=== PATIENT | female | born 1975 | race Caucasian/White ===

== ENCOUNTER 2019-08-06 12:17 | Emergency (ER) | payer OTHER, SELFPAY ==
--- NOTE | ~2019-08-06 | XR_ITS ---
EXAMINATION: XR chest 2V DATE: 08/06/2019 12:47 INDICATION: Cough and shortness of breath. TECHNIQUE: Frontal and lateral views of the chest were obtained. COMPARISON: None. FINDINGS: The chest demonstrates clear lungs without pneumonia, pleural effusion, or pneumothorax. Th e heart size is normal. IMPRESSION: 1. No acute cardiopulmonary disease. Reviewed, dictated and finalized at location A. [employer]
[2019-08-06 12:31] VITALS: BP 150/82; PULSE 101; RESP 18; TEMP 36.7; O2SAT 98
--- NOTE | 2019-08-06 12:41 | ED.URI ---
HPI - URI/Sore Throat General Chief Complaint: Upper Respiratory Infection Stated Complaint: Cough,Fever Time Seen by Provider: 08/06/19 12:41 Source: patient and RN notes reviewed Mode of arrival: ambulatory Limitations: no limitations History of Present Illness HPI Narrative: 44 year old female who presents to [facility] care with complaints of 6-day history of productive cough with expectoration of thick green-yellow mucus, shortness of breath, sore throat, fever which is been the highest of 102F,nasal drainage and stuffiness. Patient states that she has coughed so much her ribs are sore, and has coughed so hard that she has vomited. Patient states that she has an inhaler at home and she used it last evening for the shortness of breath which did help a little. Patient states that she continues to feel feverish and have chills and has been unable to rest due to coughing. 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 EYES: Denies visual changes, redness, or discharge. ENT: positive rhinorrhea, congestion, sore throat, no otalgia. CARDIOVASCULAR: Denies chest pain, palpitations, or edema. RESPIRATORY: positive cough or dyspnea. GASTROINTESTINAL: Denies abdominal pain, nausea, vomiting, or diarrhea. GENITOURINARY: Denies dysuria or hematuria. SKIN: Denies rash or itching. MUSCULOSKELETAL: Denies back pain, joint pain, or myalgia. NEUROLOGIC: Denies headache, numbness, or weakness. PSYCHIATRIC: Denies anxiety or depression. All systems reviewed & are unremarkable except as noted in HPI and below PMFSH Past Medical History Medical History (Updated 08/06/19 @ 13:28 by Donya Cortez NP) Asthma Pneumonia Social History Social History (Updated 08/06/19 @ 15:00 by Donya Cortez NP) Smoking status: Former smoker Tobacco type: cigarettes Alcohol intake: current Living arrangements: with family Gender identity (if verbalized by the patient): Female Comments At time of signature, agree with nursing past medical, social history. There is no relevant family history pertinent to the presenting complaint Exam Narrative: Exam Narrative: GENERAL: Well-appearing, well-nourished, and in no acute distress. HEAD: Normocephalic, atraumatic. EYES: PERRLA and EOMI. ENT: Nares red, clear rhinorrhea no epistaxis. Mucous membranes moist. NECK: Supple. CHEST: Coarse breath sounds on auscultation. No acute respiratory distress.dyspnea with exertion HEART: Regular rate and rhythm. No murmur heard. Normal peripheral pulses. ABDOMEN: Soft, nontender, nondistended, normal active bowel sounds. EXTREMITIES: Normal range of motion. No edema. SKIN: Warm, dry, no rash. NEURO: No focal deficits. Alert and oriented x3. Course Vital Signs Vital signs: Vital Signs Temperature 36.7 C 08/06/19 12:31 Pulse Rate 101 H 08/06/19 12:31 Respiratory Rate 18 08/06/19 12:31 Blood Pressure 150/82 H 08/06/19 12:31 Pulse Oximetry 98 08/06/19 12:31 Temperature 36.7 C 08/06/19 12:31 Pulse Rate 101 H 08/06/19 12:31 Respiratory Rate 18 08/06/19 12:31 Blood Pressure 150/82 H 08/06/19 12:31 Pulse Oximetry 98 08/06/19 12:31 MDM - URI/Sore Throat Differential Diagnosis Differential diagnosis: Likely
== END 2019-08-06 13:15 | disposition home or self-care (01) ==
PROVIDERS: Emergency Provider Registered Nurse
DX: R05 Cough (principal); R06.09 Other forms of dyspnea; J06.9 Acute upper respiratory infection, unspecified; F17.210 Nicotine dependence, cigarettes, uncomplicated
CPT/HCPCS: 71046; 87804; 99203; G0463

== ENCOUNTER 2022-06-26 07:36 | Outpatient (CLI) | payer BC, SELFPAY ==
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
[2022-06-26 08:28] LABS: Hematocrit 38.5 % (37.0-47.0); Hemoglobin 11.9 g/dL (12.0-15.0); Mean Corpuscular HGB Conc 30.9 g/dl (32-36); Mean Corpuscular Hemoglobin 26.4 pg (26-34); Mean Corpuscular Volume 85.4 fl (80-100); Mean Platelet Volume 12.1 fl (7.4-10.4); Platelet Count Result 232 k/mm3 (150-375); Red Blood Count 4.51 M/mm3 (4.2-5.4); Red Cell Distribution Width 15.7 % (11.5-14.5); White Blood Count 5.7 K/mm3 (4.5-10.0)
[2022-06-26 08:30] LABS: Anion Gap 3 mmol/L (8-16); Blood Urea Nitrogen 16 mg/dL (7-17); Calcium 8.8 mg/dL (8.4-10.2); Carbon Dioxide 30 mmol/L (22-30); Chloride 104 mmol/L (98-107); Estimated Glomerular Filt Rate > 60; Glucose 99 mg/dL (65-110); Potassium 4.3 mmol/L (3.4-5.0); Sodium 137 mmol/L (137-145)
[2022-06-30 12:15] LABS: FSH 3.8 mIU/mL (***)
[2022-07-02 18:47] LABS: Estradiol, Ultrasensitive 306 pg/mL
== END 2022-06-26 07:37 | disposition home or self-care (01) ==
PROVIDERS: Anesthesiology; PCP Physician Assistant; Visit Provider Student in an Organized Health Care Education/Training Program
DX: N93.9 Abnormal uterine and vaginal bleeding, unspecified (principal); Z87.891 Personal history of nicotine dependence; Z79.899 Other long term (current) drug therapy
CPT/HCPCS: 36415; 80048; 82670; 83001; 84443; 85027; 93005

== ENCOUNTER 2022-06-27 00:28 | Day surgery (SDC) | payer BC, SELFPAY ==
[2022-06-12 11:45] VITALS: BMI 48.4
--- NOTE | 2022-06-12 11:56 | PC.NURSE ---
Report to the Outpatient Waiting Room, entrance under the green pavilion located off [facility], at time 12:00 on date 06/27/22. Planned Procedure Time: 2:00. Time changes happen often and if your time is changed the preop area will call you the afternoon before. - You and your visitor will be asked to self-screen and do not enter if you have any COVID symptoms. - Only one visitor is requested with a max of two and NO children visitors are allowed at this time. - The patient visitor may be requested to leave or wait in car when not with patient due to distancing restrictions. - A mask is REQUIRED within the hospital. Patients may have clear liquids (water, carbonated beverages, clear teas, apple juice) until 3 hours prior to surgery (11:00) with a maximum of 20 ounces. - No food from midnight until time of surgery Take the following medications with a SIP of water the morning of surgery: INHALERS Medications to discontinue per physician: N/A Date to take last dose: N/A Please no make-up, nail montenegrin, hairspray, perfume, deodorant, or body powder the day of surgery. No jewelry (including any body piercings) or valuables the day of surgery, leave them at home. Please take a shower or bath the night before, or the morning of, surgery with an antibacterial soap. Wear comfortable, loose fitting clothing. - Jewelry must be removed prior to entering the operating room. Rings and piercings that are not removed may be cut off. - The hospital will not accept responsibility for valuables. - Please leave all valuables, including medications, at home the day of surgery. If you are going home after surgery, a licensed hydraulic lift driver must drive you home. - NO public transportation without another adult if you receive anesthesia. - We recommend that an adult stay with you for 24 hours following discharge. - We also recommend that you do not drive, make important decision, drink alcoholic beverages, or take any drugs that were not prescribed by your health care provider for at least 24 hours after your discharge time. Follow any additional instructions given to you from your surgeon. If you or anyone in your household have experienced Covid symptoms in the past week, please notify your surgeon or the nurse liaison at the phone number below for possible testing. Telephone instructions given to PT - SURY SCOTT and asked if any additional questions and then verbalized understanding. Patient advised to call surgeon office or pre surgery nurse liaison [phone] if any additional questions.
--- NOTE | 2022-06-26 13:59 | PM.IMHP ---
H&P: HPI History of Present Illness Date/Time: 06/26/22 13:59 Chief Complaint: abnormal uterine bleeding desires permanent sterilization Narrative: 47-year-old female who presents for hysteroscopy, D&C, endometrial ablation, laparoscopic bilateral tubal ligation. Patient initially presented with prolonged heavy menses. Patient is not interested in any hormonal contraceptives. Patient requests surgical management via endometrial ablation. Patient requests permanent sterilization at the time of endometrial ablation. Review of Systems Cardiovascular: Cardiovascular: Denies chest pain, Denies leg edema, Denies palpitations, Denies dyspnea and Denies dyspnea on exertion Respiratory: Respiratory: Denies cough, Denies dyspnea and Denies dyspnea on exertion Gastrointestinal: Gastrointestinal: Denies abdominal pain, Denies constipation, Denies diarrhea, Denies nausea and Denies vomiting Genitourinary: Genitourinary: Denies hematuria, Denies urinary frequency, Denies dysuria, Denies pelvic pain, Denies urinary incontinence and Denies vaginal discharge Neurologic: Reports system reviewed and no additional complaints, except as documented Psychiatric: Psychiatric: Reports no additional psychiatric complaints Endocrine: Endocrine: Denies palpitations PMFSH Past Medical History Medical History Asthma Pneumonia Surgical History Surgical History History of back surgery History of delivery Social History Social History Smoking packs per day: 1.25 Smoking cigarettes per day: 25.0 Years smoked: 25 Smoking pack-years: 31.25 Smoking status: Former smoker Tobacco type: cigarettes Smoking end date: 06/23/11 Alcohol intake: never Substance use: never Substance use type: does not use Gender identity (if verbalized by the patient): Female Sexual Orientation (if Verbalized by the Patient): Straight or Heterosexual Spiritual care concerns: No Meds Home Medications and Allergies Home Medications Medication Instructions Recorded Confirmed Type albuterol sulfate 90 mcg/actuation 2 puff inhalation Q4-6H PRN 08/06/19 06/12/22 History aerosol inhaler Bronchospasm furosemide 80 mg tablet (Lasix) 80 mg PO QAM 05/27/22 06/12/22 History drospirenone (contraceptive) 4 mg 1 tablet PO DAILY #84 tabs 06/03/22 06/12/22 Rx (28) tablet (Slynd) budesonide-formoterol HFA 160 2 inh inhalation BID 06/12/22 06/12/22 History mcg-4.5 mcg/actuation aerosol inhaler (Symbicort) ipratropium 20 mcg-albuterol 100 2 puff inhalation BID 06/12/22 06/12/22 History mcg/actuation mist for inhalation (Combivent Respimat) Allergies Allergy/AdvReac Type Severity Reaction Status Date / Time No Known Allergies Allergy Verified 06/12/22 11:43 Exam Const: General: no acute distress Eyes: EOM: EOMs intact bilaterally Neck: Neck: supple Thyroid: thyroid normal Chest: Breast/axilla inspection: normal inspection of the breasts Breast/axilla palpation: normal palpation of the breasts, normal palpation of the axillae and no axillary lymphadenopathy Resp: Effort & Inspection: normal respiratory effort Auscultation: clear to auscultation bilaterally Cardio: Rate: regular rate Rhythm: regular rhythm GI: Inspection: non-distended GI Palp: Yes Soft to palpation, No Tenderness to palpation present (GI) and No Guarding due to palpation present (GI) Auscultation: normal bowel sounds : General: No bladder normal to palpation External Female Exam: normal external appearance Speculum Exam - Vagina: normal vaginal discharge and No vaginal bleeding Speculum Exam - Cervix: nontender Bimanual exam- vagina & uterus: No bladder normal to palpation and No Cervical tenderness present OB/external & speculum: No vaginal bleeding Skin: General sk
--- NOTE | 2022-06-27 09:32 | WPDANESEPPF ---
Anes - Initial Pre Proc Eval Procedure: Operation Date: 06/27/22 13:00 Proposed Procedures p Hysteroscopy Dilation and Curettage Jonna Endometrial Ablation, Bilateral Laparoscopic Salpingectomy - Oc Moreno MD Date/Time: 06/27/22 09:32 Surgeon: Oc Moreno MD Pre Op Diagnosis: abnormal uterine bleeding, desires sterilization Patient Data Age: 47 Gender: F Height: 1.68 m Weight: 136.1 kg Allergies Allergy/AdvReac Type Severity Reaction Status Date / Time No Known Allergies Allergy Verified 06/27/22 12:28 Home Medications Medication Instructions Recorded Confirmed Type albuterol sulfate 90 mcg/actuation 2 puff inhalation Q4-6H PRN 08/06/19 06/27/22 History aerosol inhaler Bronchospasm furosemide 80 mg tablet (Lasix) 80 mg PO QAM 05/27/22 06/12/22 History drospirenone (contraceptive) 4 mg 1 tablet PO DAILY #84 tabs 06/03/22 06/12/22 Rx (28) tablet (Slynd) budesonide-formoterol HFA 160 2 inh inhalation BID 06/12/22 06/27/22 History mcg-4.5 mcg/actuation aerosol inhaler (Symbicort) ipratropium 20 mcg-albuterol 100 2 puff inhalation BID 06/12/22 06/27/22 History mcg/actuation mist for inhalation (Combivent Respimat) Patient hx anesthesia problems: none Family hx anesthesia problems: none Results Review: All pre-operative results and documents have been reviewed as part of the pre-operative evaluation. [facility] Past Medical History Medical History (Updated 06/27/22 @ 09:34 by Ernesto Beltre DO) Asthma Edema Pneumonia Surgical History Surgical History (Updated 06/27/22 @ 09:34 by Ernesto Beltre DO) H/O detached retina repair History of back surgery History of delivery Social History Social History Smoking packs per day: 1.25 Smoking cigarettes per day: 25.0 Years smoked: 25 Smoking pack-years: 31.25 Smoking status: Former smoker Tobacco type: cigarettes Smoking end date: 06/23/11 Alcohol intake: never Substance use: never Substance use type: does not use Living arrangements: with family Gender identity (if verbalized by the patient): Female Sexual Orientation (if Verbalized by the Patient): Straight or Heterosexual Spiritual care concerns: No Anes - Eval Final PreProcedure Day of Procedure 06/27/22 09:32 Patient weight: morbidly obese Heart: regular rate and rhythm Lungs: clear to auscultation Airway: Mallampati scale class II Neurological: alert and oriented Last oral intake: >/= 8 hours ASA classification: III Emergent: no Anesthetic plan: proceed Anesthesia type and monitoring: general ETT and standard monitoring Results Review: All pre-operative results and documents have been reviewed as part of the pre-operative evaluation. Informed Consent: The patient's anesthetic plan and its attendant risks and benefits were discussed with the patient/family/POA. Questions were solicited and answers provided to the satisfaction of the patient/family/POA.
--- NOTE | 2022-06-27 11:09 | WPDHPUPDATE1 ---
History and Physical Update Update Date/Time: 06/27/22 11:09 History and Physical has been reviewed, including an updated exam of the patient. There are NO changes in the patient's condition. Risks, benefits, and alternatives have been discussed and questions answered. Patient agrees to proceed with procedure.
[2022-06-27 12:12] VITALS: BP 125/57; PULSE 88; RESP 14; TEMP 37.1; O2SAT 99
[2022-06-27] MEDS: KETOROLAC 15 MG/ML VIAL (*BKC) IV PUSH (12:25)
[2022-06-27] MEDS: LACTATED RINGERS 1,000 ML 30 ML IV CONT ×2 (12:25→14:39)
[2022-06-27] MEDS: ACETAMINOPHEN 500 MG TABLET 1000 MG PO (12:25)
[2022-06-27] MEDS: LIDOCAINE 1% BUFFERED WITH 8.4% SODIUM BICARB 1 ML SYRINGE 30 ML INFILTRATE (14:08)
--- NOTE | 2022-06-27 14:33 | W.PM.PROC2 ---
Procedure Note - Detailed Date of Procedure 06/27/22 Pre-op Diagnosis abnormal uterine bleeding, desires sterilization Post-op Diagnosis Same Procedure Performed laparoscopic bilateral salpingectomy hysteroscopy dilation & curettage endometrial ablation Surgeon Oc Moreno MD Anesthesia General Indications abnormal uterine bleeding Findings thickened endometrium globally, endometrial implants noted on the uterine serosa, normal fallopian tubes and ovaries bilaterally Description of Procedure Nano Marrero presents for the above procedure. She was counseled as to the indications, risks, benefits, and alternatives to surgery, with the risks including bleeding, infection, damage to surrounding organs, VTE, and complications of anesthesia. Her verbal and written consent was obtained. PROCEDURE: the patient was taken to the operating room where general endotracheal anesthesia was undertaken and found to be adequate.? She was then prepped and draped in the dorsal? lithotomy position.? A pre-operative team brief and time-out were completed. ? A catheter was placed to drain the bladder.? Speculum was placed in the vagina and the cervix was identified.? An acorn uterine manipulator was placed as well as single-tooth tenaculum on the anterior lip of the cervix. ? Attention was then turned to the abdomen which was anesthetized umbilical he with injected anesthetic.? A 5 mm skin incision was made in the umbilicus.? A 5 mm? optical trocar was then? placed with direct visualization of the abdominal layers during placement.? The trocar stylette was removed and the camera was used to verify intra-abdominal placement.zulma was used to verify intra-abdominal placement.? CO2 insufflation was then connected and ? The abdominal cavity was insufflated. ? General abdominal and pelvic survey was? performed.? Two other laparoscopic port site incisions were made approximately 2 cm superior and medial of the ASIS bilaterally. Pelvic survey was performed and noted endometrial implants on the uterine serosa. There were also mild adhesions between the bowel and the pelvic sidewall. ?Both fallopian tubes were inspected and identified out to the level of the fimbriae.? The Fimbriated end of the left fallopian tube was then grasped with a blunt grasper. the fallopian tube was then transected along its inferior aspect along the mesosalpinx with the LigaSure device.? Transection was carried out to the fallopian tubes insertion into the uterine fundus.? The fallopian tube was then completely transected from the uterus using the LigaSure device. ? This procedure was repeated for the right fallopian tube. Good hemostasis was maintained throughout. ? The transected fgh the 5 mm laparoscopic portrom the abdomen through the 5 mm laparoscopic port. ? The surgical field was inspected and again could hemostasis was noted.? At this point the procedure was ended.? The abdomen was desufflated.? All laparoscopic ports were removed from the abdomen.? Abdominal incisions were closed with 4-0 Vicryl? in a subcuticular fashion..? The acorn manipulator and tenaculum? weere removed from the vagina.? The cervix was inspected and good hemostasis was obtained. Attention was then turned to the hysteroscopic portion of the procedure. The uterus sounded to 8 cm. The cervix was dilated with sequential Allie dilators. Hysteroscopy, using a normal saline medium, was performed and showed the above findings. Sharp uterine curettage was then performed and tissue placed on Telfa. The Jonna device was set to a depth of 5.5 cm. The device was inserted into the uterus and deployed. Good fit was reassured by the device indicator. The cervical balloon was insufflated to ensure a good seal. Uterine integrity test was performed by the Jonna device and was successful. The device was then activated. The entire ablation procedure lasted 120 seconds. The cervical balloon was desufflated and the device was removed from the ut
[2022-06-27 14:39] VITALS: BP 118/63; PULSE 98; RESP 15; TEMP 36.8; O2SAT 98
[2022-06-27] MEDS: fentaNYL CITRATE INJ (*CRX) 100 MCG/2 ML VIAL 25 MCG IV PUSH ×8 (14:50→15:25)
[2022-06-27 14:55] VITALS: BP 121/78; PULSE 65; RESP 14; O2SAT 98
[2022-06-27 15:10] VITALS: BP 118/63; PULSE 64; RESP 12; O2SAT 99
[2022-06-27 15:25] VITALS: BP 118/63; PULSE 64; RESP 16; O2SAT 96
[2022-06-27 15:50] VITALS: BP 121/62; PULSE 71; RESP 16
[2022-06-27] MEDS: ONDANSETRON INJ 4 MG/2 ML VIAL IV PUSH (16:02)
== END 2022-06-27 16:45 | disposition home or self-care (01) ==
PROVIDERS: PCP Physician Assistant; Visit Provider Student in an Organized Health Care Education/Training Program
PROC: 0UDB8ZZ Extraction of Endometrium, Via Natural or Artificial Opening Endoscopic (ICD-10-PCS; CPT 58558; principal; 2022-06-27 13:00)
DX: N93.9 Abnormal uterine and vaginal bleeding, unspecified (principal); Z30.2 Encounter for sterilization; N80.00 Endometriosis of the uterus, unspecified; N83.8 Other noninflammatory disorders of ovary, fallopian tube and broad ligament; J45.909 Unspecified asthma, uncomplicated; Z79.51 Long term (current) use of inhaled steroids; Z87.891 Personal history of nicotine dependence; E66.01 Morbid (severe) obesity due to excess calories; Z68.43 Body mass index [BMI] 50.0-59.9, adult
CPT/HCPCS: 58661; 58563; 88302; 88305; A9270; J1100; J1885; J2250; J2405; J2704; J3010; J7120

== ENCOUNTER 2022-07-03 19:06 | Emergency (ER) | payer BC, SELFPAY ==
--- NOTE | ~2022-07-03 | US_ITS ---
EXAMINATION: US transvaginal DATE: 07/03/2022 20:53 INDICATION: vaginal bleeding, left lower quadrant pain TECHNIQUE: Multiple transabdominal and endovaginal sonographic images of the pelvis were obtained. COMPARISON: 06/03/2022, images only. FINDINGS: Uterus: 10.7 x 6.7 x 7.7 cm. Endometrial complex is echogenic and measures up to 26 mm, with irregula r endometrial border. Fluid in the endometrial canal. Right Ovary: Not visualized. 3.1 cm simple appearing right adnexal cyst. Left Ovary: Not visualized. There is no free fluid in the pelvis. IMPRESSION: Echogenic endometrial thickening thickening, presumably related to recent post ablation change. Small volume endometrial cavity fluid. The bilateral ovaries were not visualized. 3.1 cm simple appearing right adnexal cyst, likely representing an ovarian cyst. Reviewed, dictated and finalized at [facility] K. [employer] DEVELOPER IMPRESSION: Echogenic endometrial thickening thickening, presumably related to recent post ablation change. Small volume endometrial cavity fluid. The bilateral ovaries w ere not visualized. 3.1 cm simple appearing right adnexal cyst, likely represen ting an ovarian cyst.
[2022-07-03 19:09] VITALS: BP 140/84; PULSE 99; RESP 20; TEMP 36.4; O2SAT 99
[2022-07-03 19:51] LABS: Basophils Absolute Auto 0.1 K/mm3 (0.0-0.1); Basophils Percent Auto 0.7 % (0.2-1.2); Eosinophils Absolute Auto 0.2 K/mm3 (0-0.3); Eosinophils Percent Auto 2.1 % (0-4.4); Hematocrit 38.1 % (37.0-47.0); Hemoglobin 11.8 g/dL (12.0-15.0); Immature Granulocyte Absolute 0.05 K/mm3 (0.00-0.031); Immature Granulocyte Percent A 0.5 % (0-0.5); Lymphocytes Absolute Auto 3.15 K/mm3 (0.9-3.2); Lymphocytes Percent Auto 32.7 % (18.3-44.2); Mean Corpuscular Hemoglobin 26.4 pg (26-34); Mean Corpuscular Volume 85.2 fl (80-100); Mean Platelet Volume 11.7 fl (7.4-10.4); Monocytes Absolute Auto 0.8 K/mm3 (0.1-0.6); Monocytes Percent Auto 8.7 % (2.6-8.5); Neutrophils Absolute Auto 5.3 K/mm3 (1.3-6.7); Neutrophils Percent Auto 55.3 % (45.5-73.1); Platelet Count Result 325 k/mm3 (150-375); Red Blood Count 4.47 M/mm3 (4.2-5.4); Red Cell Distribution Width 15.3 % (11.5-14.5); White Blood Count 9.6 K/mm3 (4.5-10.0)
[2022-07-03 20:01] LABS: Alanine Aminotransferase 17 U/L (6-35); Albumin Level 4.1 g/dL (3.5-5.1); Alkaline Phosphatase 95 U/L (38-126); Anion Gap 4 mmol/L (8-16); Aspartate Amino Transferase 16 U/L (14-36); Bilirubin,Total 0.3 mg/dL (0.2-1.3); Blood Urea Nitrogen 17 mg/dL (7-17); Calcium 8.8 mg/dL (8.4-10.2); Carbon Dioxide 29 mmol/L (22-30); Chloride 100 mmol/L (98-107); Estimated CRCL calculation 95 ml/min; Estimated Glomerular Filt Rate > 60; Glucose 94 mg/dL (65-110); Sodium 133 mmol/L (137-145)
[2022-07-03 20:10] VITALS: BP 124/76; PULSE 98
[2022-07-03 20:12] LABS: Prothrombin Time 12.5 Seconds (11.1-14.7)
[2022-07-03 20:13] LABS: Partial Thromboplastin Time 25.1 SECONDS (22.3-36.8)
--- NOTE | 2022-07-03 21:10 | ED.FEMALEGU ---
HPI - Female Genitourinary General Chief complaint: Vaginal Bleeding Stated complaint: s/p ablation and salphingectomy on 06/27 bleeding so Time Seen by Provider: 07/03/22 20:40 Source: patient Mode of arrival: ambulatory Limitations: no limitations History of Present Illness HPI Narrative: This is a 47 year old female that presents to the ER for vaginal bleeding ongoing since this afternoon. Reports she recently had an endometrial ablation and salpingectomy on the of this month with Dr. Moreno. Her bleeding has largely stopped. This afternoon she reports she had lifted a heavy stool. She immediately felt a gush of blood. She also felt pain in her left lower abdomen/pelvis. She was having some heavy bleeding for several hours, she does note that it has slowed down since her arrival to the ER. Denies fever, vomiting, or dysuria. Related Data Home Medications Medication Instructions Recorded Confirmed albuterol sulfate 90 mcg/actuation 2 puff inhalation Q4-6H PRN 08/06/19 06/27/22 aerosol inhaler Bronchospasm furosemide 80 mg tablet (Lasix) 80 mg PO QAM 05/27/22 06/12/22 budesonide-formoterol HFA 160 2 inh inhalation BID 06/12/22 06/27/22 mcg-4.5 mcg/actuation aerosol inhaler (Symbicort) ipratropium 20 mcg-albuterol 100 2 puff inhalation BID 06/12/22 06/27/22 mcg/actuation mist for inhalation (Combivent Respimat) Allergies Allergy/AdvReac Type Severity Reaction Status Date / Time dexamethasone AdvReac Mild Other Verified 06/27/22 15:14 Review of Systems Review of Systems: CONSTITUTIONAL: Denies fever GASTROINTESTINAL: Reports abdominal pain. Denies nausea, vomiting GENITOURINARY: Denies dysuria or hematuria. All systems reviewed & are unremarkable except as noted in HPI and below PMFSH Past Medical History Medical History (Updated 07/03/22 @ 22:32 by Myriam Pierre PA-C) Asthma Edema Pneumonia Surgical History Surgical History (Updated 06/27/22 @ 09:34 by Ernesto Beltre DO) H/O detached retina repair History of back surgery History of delivery Social History Social History Smoking packs per day: 1.25 Smoking cigarettes per day: 25.0 Years smoked: 25 Smoking pack-years: 31.25 Smoking status: Former smoker Tobacco type: cigarettes Smoking end date: 06/23/11 Alcohol intake: never Substance use: never Substance use type: does not use Gender identity (if verbalized by the patient): Female Sexual Orientation (if Verbalized by the Patient): Straight or Heterosexual Spiritual care concerns: No Exam Narrative: GENERAL: Well-appearing, well-nourished, and in no acute distress. HEAD: Normocephalic, atraumatic. EYES: EOMI. CHEST: Clear to auscultation. No respiratory distress. No wheezes rales or rhonchi HEART: Regular rate and rhythm. No murmur heard. Normal peripheral pulses. ABDOMEN: Soft, nontender, nondistended, normal active bowel sounds. Incisions are well-healing without any surrounding erythema or abnormal drainage EXTREMITIES: Normal range of motion. No edema. SKIN: Warm, dry, no rash. NEURO: No focal deficits. Alert and oriented x3. PSYCH: Normal mood and affect PELVIC: Scant amount of blood in the vaginal vault Course Course Emergency Course: Patient updated on workup. Resting comfortably Consultations Consultation #1: Spoke with Dr. Moreno about patient and workup who will follow up in clinic Date: 07/03/22 Vital Signs Vital signs: Vital Signs Temperature 97.5 F L 07/03/22 19:09 Pulse Rate 99 07/03/22 19:09 Respiratory Rate 20 07/03/22 19:09 Blood Pressure 140/84 07/03/22 19:09 Pulse Oximetry 99 07/03/22 19:09 Oxygen Delivery Room Air 07/03/22 19:09 Temperature 97.5 F L 07/03/22 19:09 Pulse Rate 99 07/03/22 19:09 Respiratory Rate 20 07/03/22 19:09 Blood Pressure 140/84 07/03/22 19:09 Pulse Oximetry 99 07/03/22 19:09 Oxygen Deli
[2022-07-03 23:00] LABS: Appearance Urine Clear (Clear); Bacteria Urine Trace /hpf; Bilirubin Urine Negative (Negative); Blood Urine 2+ (Negative); Color Urine Yellow (Yellow); Glucose Urine UA Negative (Negative); Ketones Urine Trace mg/dL (Negative); Leukocyte Esterase Ur Negative LEU/UL (Negative); Mucus Urine Moderate /lpf; Nitrate Urine Negative (Negative); Protein Urine 1+ mg/dL (Negative); RBC Urine 21-50 /hpf (0-2); Specific Grav Ur >= 1.030 (1.001-1.035); Squamous Epithelial Cell Urine Few /hpf (Few); Urobilinogen Urine 0.2 mg/dL (<2.0); WBC Urine 0-3 /hpf; pH Urine 5.5 (5.0-9.0)
[2022-07-03 23:12] LABS: Add Urine Microscopic? YES
== END 2022-07-04 04:22 | disposition home or self-care (01) ==
PROVIDERS: Emergency Medicine; Emergency Provider Physician Assistant; PCP Student in an Organized Health Care Education/Training Program
DX: N99.820 Postprocedural hemorrhage of a genitourinary system organ or structure following a genitourinary system procedure (principal); J45.909 Unspecified asthma, uncomplicated; Z90.79 Acquired absence of other genital organ(s); Z87.01 Personal history of pneumonia (recurrent); Z87.891 Personal history of nicotine dependence; N94.89 Other specified conditions associated with female genital organs and menstrual cycle
CPT/HCPCS: 36415; 76830; 80053; 81001; 85025; 85610; 85730; 99284

== ENCOUNTER 2023-04-22 12:57 | Outpatient (CLI) | payer BC, SELFPAY ==
--- NOTE | ~2023-04-22 | XR_ITS ---
XR hip BI 2V w AP pelvis DATE: 04/22/2023 13:47 INDICATION: Inflammatory polyarthropathy TECHNIQUE: AP pelvis. AP and lateral views of each hip. COMPARISON: None FINDINGS: No pelvic fracture or bone destruction. The pubic symphysis and sacroiliac joints are intac t. Severe degenerative disc disease at L5-S1. Hip joint spaces are symmetric and well preserved. No fracture, dislocation, avascular necrosis or yesenia ne destruction of either hip. IMPRESSION: Severe degenerative disc disease at L5-S1 No significant abnormality of the hips Reviewed, dictated and finalized at location L.
--- NOTE | ~2023-04-22 | XR_ITS ---
XR knee LT 3V DATE: 04/22/2023 13:47 INDICATION: Inflammatory polyarthropathy TECHNIQUE: [place] and standing AP and lateral views COMPARISON: None FINDINGS: There is mild periarticular spurring at the patellofemoral compartment and to a greater ext ent the medial compartment with prominent loss of height at the medial compartment joint space. No fracture or dislocation or joint effusion, periosteal reaction or bone destruction. No radiopaque intra-articular loose body or chondrocalcinosis is evident. IMPRESSION: Osteoarthritis involving the patellofemoral and particularly the medial compartments Reviewed, dictated and finalized at location L. IMPRESSION: Osteoarthritis involving the patellofemoral and particularly the me dial compartments
--- NOTE | ~2023-04-22 | XR_ITS ---
XR knee RT 3V DATE: 04/22/2023 13:47 INDICATION: Inflammatory polyarthropathy TECHNIQUE: [place] and standing AP and lateral views COMPARISON: None FINDINGS: There is periarticular spurring at all 3 compartments and prominent loss of joint space at the medial compartment. No fracture or dislocation is evident. Mild suprapatellar knee joint effusion is suggested. No periosteal reaction or bone destruction. No radiopaque intra-articular loose body or chondrocalcin osis is detected. IMPRESSION: Tricompartment osteoarthritis, most severe at the medial compartment Mild knee joint effusion Reviewed, dictated and finalized at location L. IMPRESSION: Tricompartment osteoarthritis, most severe at the medial compartmen t Mild knee joint effusion
--- NOTE | ~2023-04-22 | XR_ITS ---
XR chest 2V DATE: 04/22/2023 13:47 INDICATION: Inflammatory polyarthropathy TECHNIQUE: 2 views COMPARISON: None FINDINGS: Normal heart size. No hilar or mediastinal enlargement. No pulmonary infiltrate or consolid ation, pleural effusion or pulmonary vascular congestion or pneumothorax is detected. IMPRESSION: No active cardiopulmonary disease Reviewed, dictated and finalized at [facility].
== END 2023-04-22 12:58 ==
PROVIDERS: PCP Internal Medicine; Visit Provider Internal Medicine
DX: M06.4 Inflammatory polyarthropathy (principal); M45.0 Ankylosing spondylitis of multiple sites in spine; M77.9 Enthesopathy, unspecified; B37.9 Candidiasis, unspecified; M16.0 Bilateral primary osteoarthritis of hip; M25.461 Effusion, right knee; M51.37 Other intervertebral disc degeneration, lumbosacral region
CPT/HCPCS: 71046; 73521; 73562

== ENCOUNTER 2023-06-15 11:39 | Emergency (ER) | payer BC, SELFPAY ==
[2023-06-15 11:40] VITALS: BP 125/57; PULSE 118; RESP 20; TEMP 36.3; O2SAT 99
--- NOTE | 2023-06-15 11:46 | ECG_ITS ---
Measurements Intervals [place] Rate: 111 P: 65 IN: 135 QRS: 18 QRSD: 89 T: 67 QT: 317 QTc: 431 Interpretive Statements SINUS TACHYCARDIA LOW QRS VOLTAGE IN PRECORDIAL LEADS [QRS DEFLECTION < 1.0 mV IN CHEST LEADS] ABNORMAL RHYTHM ECG COMPARED TO ECG 06/26/2022 08:16:53 SINUS TACHYCARDIA NOW PRESENT Electronically Signed On 06-15-2023 17:12:43 [employer] by Ingrid Ann M.D.
--- NOTE | 2023-06-15 12:29 | PC.NURSE ---
Multiple attempts to get IV access.
[2023-06-15] MEDS: LACTATED RINGERS 1,000 ML 999 ML IV CONT (12:53)
[2023-06-15 12:59] LABS: Basophils Percent Auto 0.5 % (0.2-1.2); Eosinophils Absolute Auto 0.1 K/mm3 (0-0.3); Eosinophils Percent Auto 1.3 % (0-4.4); Hematocrit 40.4 % (37.0-47.0); Hemoglobin 11.6 g/dL (12.0-15.0); Immature Granulocyte Absolute 0.05 K/mm3 (0.00-0.031); Immature Granulocyte Percent A 0.6 % (0-0.5); Lymphocytes Absolute Auto 0.87 K/mm3 (0.9-3.2); Lymphocytes Percent Auto 10.4 % (18.3-44.2); Mean Corpuscular HGB Conc 28.7 g/dl (32-36); Mean Corpuscular Hemoglobin 23.4 pg (26-34); Mean Corpuscular Volume 81.6 fl (80-100); Mean Platelet Volume 11.8 fl (7.4-10.4); Monocytes Absolute Auto 0.9 K/mm3 (0.1-0.6); Monocytes Percent Auto 10.6 % (2.6-8.5); Neutrophils Absolute Auto 6.4 K/mm3 (1.3-6.7); Neutrophils Percent Auto 76.6 % (45.5-73.1); Platelet Count Result 265 k/mm3 (150-375); Red Blood Count 4.95 M/mm3 (4.2-5.4); Red Cell Distribution Width 23.9 % (11.5-14.5); White Blood Count 8.4 K/mm3 (4.5-10.0)
--- NOTE | 2023-06-15 13:18 | ED.NAVMDI ---
HPI - Nausea/Vomiting/Diarrhea General Chief complaint: Nausea/Vomiting/Diarrhea Stated complaint: nasuea, vomitting, diarrhea Time Seen by Provider: 06/15/23 12:01 History of Present Illness HPI Narrative: Patient is a 48-year-old female who presents to the ER with nausea vomiting and diarrhea. Ongoing since yesterday. Innumerable emesis and stools. Denies fevers. No known sick contacts. Does not believe she has had blood in her stool or emesis. She is on Lasix but has not taken her medications today. Related Data Home Medications Medication Instructions Recorded Confirmed albuterol sulfate 90 mcg/actuation 2 puff inhalation Q4-6H PRN 08/06/19 06/27/22 aerosol inhaler Bronchospasm furosemide 80 mg tablet (Lasix) 80 mg PO QAM 05/27/22 06/12/22 budesonide-formoterol HFA 160 2 inh inhalation BID 06/12/22 06/27/22 mcg-4.5 mcg/actuation aerosol inhaler (Symbicort) ipratropium 20 mcg-albuterol 100 2 puff inhalation BID 06/12/22 06/27/22 mcg/actuation mist for inhalation (Combivent Respimat) Allergies Allergy/AdvReac Type Severity Reaction Status Date / Time dexamethasone AdvReac Mild Other Verified 06/15/23 11:44 Review of Systems Review of Systems: All systems reviewed & are unremarkable except as noted in HPI and below Constitutional: Constitutional: Denies chills, Reports fatigue and Denies fever(s) ENT: Reports system reviewed and no additional complaints, except as documented Cardiovascular: Cardiovascular: Reports no additional cardiovascular complaints Respiratory: Respiratory: Reports no additional respiratory complaints Gastrointestinal: Gastrointestinal: Denies abdominal pain, Reports diarrhea, Reports nausea and Reports vomiting Genitourinary: Genitourinary: Reports no additional female genitourinary complaints Musculoskeletal: Musculoskeletal: Reports no additional musculoskeletal complaints [facility] Past Medical History Medical History Asthma Edema Pneumonia Surgical History Surgical History H/O detached retina repair History of back surgery History of delivery Social History Social History Smoking packs per day: 1.25 Smoking cigarettes per day: 25.0 Years smoked: 25 Smoking pack-years: 31.25 Smoking status: Former smoker Tobacco type: cigarettes Smoking end date: 06/23/11 Alcohol intake: never Substance use: never Substance use type: does not use Living arrangements: with family Occupation/Education: occupation Gender identity (if verbalized by the patient): Female Sexual Orientation (if Verbalized by the Patient): Straight or Heterosexual Spiritual care concerns: No Exam Narrative: GENERAL: fatigued-appearing, morbidly obese, and in no acute distress. HEAD: Normocephalic, atraumatic. ENT: Mucous membranes moist. CHEST: Clear to auscultation. No respiratory distress. HEART: Regular rate and rhythm. Normal peripheral pulses. ABDOMEN: Soft, nontender, nondistended. EXTREMITIES: Normal range of motion. No edema. SKIN: Warm, dry, no rash. NEURO: Alert and oriented x3. PSYCH: Normal mood and affect. Course Course Emergency Course: Patient feels markedly improved with IV fluid and Zofran. Headache resolved with morphine. Discharge home. Vital Signs Vital signs: Vital Signs Temperature 97.4 F L 06/15/23 11:40 Pulse Rate 118 H 06/15/23 11:40 Respiratory Rate 20 06/15/23 11:40 Blood Pressure 125/57 L 06/15/23 11:40 Pulse Oximetry 99 06/15/23 11:40 Oxygen Delivery Room Air 06/15/23 11:40 Temperature 97.4 F L 06/15/23 11:40 Pulse Rate 89 06/15/23 17:01 Respiratory Rate 19 06/15/23 17:01 Blood Pressure 122/58 L 06/15/23 17:01 Pulse Oximetry 100 06/15/23 17:01 Oxygen Delivery Room Air 06/15/23 11:40 MDM - Na
[2023-06-15 13:24] LABS: Anisocytosis 1+ (NORMAL); Hypochromasia 1+ (NORMAL); Platelet Estimate Adequate (Adequate); Schistocytes None Seen (NORMAL)
[2023-06-15] MEDS: ONDANSETRON INJ 4 MG/2 ML VIAL IV PUSH (13:28)
[2023-06-15] MEDS: MORPHINE SULFATE (*CRX) 4 MG/ML INJ IV PUSH ×2 (13:29→14:35)
[2023-06-15 13:59] LABS: Alanine Aminotransferase 34 U/L (6-35); Albumin Level 3.3 g/dL (3.5-5.1); Alkaline Phosphatase 67 U/L (38-126); Anion Gap 4 mmol/L (8-16); Aspartate Amino Transferase 19 U/L (14-36); Bilirubin,Total 0.8 mg/dL (0.2-1.3); Blood Urea Nitrogen 23 mg/dL (7-17); Calcium 8.1 mg/dL (8.4-10.2); Carbon Dioxide 28 mmol/L (22-30); Chloride 103 mmol/L (98-107); Estimated CRCL calculation 100 ml/min; Estimated Glomerular Filt Rate > 60; Glucose 116 mg/dL (65-110); Lipase 42 U/L (23-300); Potassium 3.7 mmol/L (3.4-5.0); Sodium 135 mmol/L (137-145)
[2023-06-15 15:23] VITALS: BP 120/52; PULSE 86
[2023-06-15 15:25] VITALS: BP 126/57; PULSE 100
[2023-06-15 15:25] LABS: Appearance Urine Cloudy (Clear); Bacteria Urine 1+ /hpf; Bilirubin Urine Negative (Negative); Blood Urine Negative (Negative); Color Urine Yellow (Yellow); Glucose Urine UA Negative (Negative); Ketones Urine Negative (Negative); Leukocyte Esterase Ur Trace LEU/UL (Negative); Nitrate Urine Negative (Negative); Non Pathogenic Casts 0-2; Protein Urine Trace mg/dL (Negative); RBC Urine 0-2 /hpf (0-2); Specific Grav Ur 1.024 (1.001-1.035); Squamous Epithelial Cell Urine Moderate /hpf (Few); WBC Urine 0-5 /hpf
[2023-06-15 15:27] VITALS: BP 117/54; PULSE 113
[2023-06-15 15:30] VITALS: BP 122/55; PULSE 114; RESP 14; O2SAT 96
[2023-06-15 15:36] LABS: Add Urine Microscopic? YES
[2023-06-15 17:01] VITALS: BP 122/58; PULSE 89; RESP 19; O2SAT 100
== END 2023-06-15 17:02 | disposition home or self-care (01) ==
PROVIDERS: General Practice; Emergency Provider Emergency Medicine; PCP Physician Assistant
DX: K52.9 Noninfective gastroenteritis and colitis, unspecified (principal); J45.909 Unspecified asthma, uncomplicated; Z87.891 Personal history of nicotine dependence
CPT/HCPCS: 36415; 80053; 81001; 81025; 83690; 85025; 85055; 93005; 96361; 96374; 96375; 96376; 99284; J2270; J2405; J7120